=== PATIENT | female | born 1935 | race Caucasian/White ===

== ENCOUNTER 2016-07-27 10:16 | Outpatient (CLI) | payer MEDICARE ==
--- NOTE | 2016-07-27 12:14 | Cat Scan Report ---
CT of the abdomen and pelvis without contrast. Findings: There is subsegmental atelectasis in the right lower lobe and there is increased soft tissue density in the right infrahilar region where I cannot exclude a mass lesion. A moderate right pleural effusion is also noted. The liver is normal. There is a round 2 cm hypodensity in the central aspect of the spleen. The pancreas is poorly evaluated due to absence of intravenous and oral contrast and 2 a paucity of retroperitoneal fat. The fat planes in the retroperitoneum are obscured. Extensive vascular calcifications are noted. There is severe atrophy of the right kidney. A Hypodense mass in the medial aspect of the left kidney measures 2.1 cm in diameter. A 1.3 cm calculus is seen in the upper pole of the left kidney, but no hydronephrosis is present. Vascular calcifications are noted in the renal hilum. There is a small volume of ascites. Burleson catheter is noted within the bladder. Anasarca is present. Impression 1. Soft tissue density in the right infrahilar region with right lower lobe atelectasis and right pleural effusion. A neoplastic process cannot be excluded. 2. The hypodense lesion in the spleen is nonspecific but this could represent a metastatic lesion. This could also represent a simple cyst. 3. Severe right renal biopsy. 4. Left nephrolithiasis without obstruction. A small left renal cyst is also noted. 5. Small volume ascites and anasarca are noted.
== END 2016-07-27 10:17 | disposition home or self-care (01) ==
LOC: CT 10:16
PROVIDERS: ATTEND Urology
DX: N20.0 Calculus of kidney (principal); N26.1 Atrophy of kidney (terminal); J98.11 Atelectasis; J90 Pleural effusion, not elsewhere classified; N28.89 Other specified disorders of kidney and ureter; R18.8 Other ascites
CPT/HCPCS: 74176